=== PATIENT | female | born 1925 | race Caucasian/White ===

== ENCOUNTER 2016-09-10 12:01 | Observation (INO) | payer MEDICARE ==
[~2016-09-10] VITALS: Ht 152.4 cm; Wt 47.3 kg
[2016-09-10 12:04] VITALS: BP 143/75; PULSE 51; RESP 16; O2SAT 97
--- NOTE | 2016-09-10 12:25 | ED.REPORT ---
HPI-Back Pain 40 and Over Date of Service Sep 10, 2016 ED Provider: The patient is an 89 year old female with history of hypertension, who was brought to the emergency department complaining of back pain. The patient tripped and fell to the ground at home prior to arrival. She fell to the ground and was all tangled in the furniture. She denies hitting her head or losing consciousness. She noticed shortness of breath after walking around her house prior to the fall. She was sick with flu-like symptoms a few weeks ago. She has noticed shortness of breath with exertion and she has felt weak, shaky, and fatigued. These symptoms have improved since onset. She has been eating and drinking normally over the last few days. She denies extremity pain, chest pain , abdominal pain, cough, runny nose, vomiting or diarrhea. Nursing Notes Stated Complaint: GLF W/BACK PAIN Chief Complaint: Back Pain or Injury Nursing Notes Reviewed: Yes Allergies: Coded Allergies: citalopram (Verified Allergy, Intermediate, extreme drowsiness, 09/10/16) amoxicillin (Verified Allergy, Unknown, RASH, VOMITING, 09/10/16) levofloxacin (Verified Adverse Reaction, Unknown, LEG CRAMPS, 09/10/16) Scheduled Amlodipine (Amlodipine) 5 Mg Tablet 5 MG PO DAILY Aspirin (Aspirin) 81 Mg Tablet 81 MG PO DAILY Doxycycline Hyclate (Doxycycline Hyclate) 100 Mg Capsule 100 MG PO bid x 10 days Flaxseed Oil ([place]-3 Flaxseed Oil) 1,000 Mg Capsule 1,000 MG PO DAILY Lisinopril (Lisinopril) 20 Mg Tablet 20 MG PO BID Metoprolol Tartrate (Metoprolol Tartrate) 50 Mg Tablet 50 MG PO DAILY Multivits-Min/FA/Lycopene/Lut (Centrum Silver Tablet) 1 Each Tablet 1 EACH PO DAILY [place]-3/Dha/Epa/Fish Oil (Fish Oil 1,000 mg Softgel) 1 Each Capsule 1 EACH PO DAILY Simvastatin (Simvastatin) 10 Mg Tablet 10 MG PO HS Vit C/Vit E/Lutein/Min/[place]-3 (Ocuvite Softgel) 1 Each Capsule 1 EACH PO DAILY Scheduled PRN Acetaminophen/Diphenhydramine (Tylenol Pm Ex-Strength Caplet) 500 Mg-25 Mg Tablet 1 EACH PO HS PRN PRN For Sleep Albuterol HFA (Proair HFA) 8.5 Gm Hfa.aer.ad 2 PUFFS INHALATION Q4H PRN PRN For Shortness of Breath General Time Seen by MD: 12:24 Chief Complaint Back pain Hx Obtained From: Patient, EMS Arrived By: Ambulance Sudden in Onset?: Yes Onset Occurred: 1 - 4 hours ago Symptom Duration: Since onset Caused by: Fall Location: : Perispinal lumbar Quality: Painful Radiation: : Does not radiate Severity: Current: Moderate Severity: Maximum: Moderate Recent Healthcare: No recent doctor visit, No recent hospitalization Similar Sx Previous: No Past Medical History Family History Noncontributory Social History Other Social History: Local resident Ambulatory Status Independent Review of Systems Constitutional: Reports: Fatigue, Weakness - generalized, Denies: Chills, Fever Respiratory: Reports: Dyspnea on exertion, Denies: Non-productive cough Cardiovascular: Denies: Chest pain GI: Denies: Abdominal pain, Diarrhea, Nausea, Vomiting Musculoskeletal: Reports: Back pain, Denies: Extremity pain, Neck pain Neurologic: Denies: Change LOC, Headache Complete sys rev & neg: except as marked. Ears / Nose / Throat: Denies: Nasal congestion Physical Exam Initial Vital Signs Vital Signs (First) Date Time Temp Pulse Resp B/P Pulse Ox O2 Delivery O2 Flow Rate FiO2 09/10/16 12:04 37.1 51 16 143/75 97 Room Air Initial VS: Reviewed, Vital signs normal Head / Eyes: Atraumatic, Normocephalic, PERRL ENT: Mucous membranes moist, Conjunctiva normal, No scleral icterus Neck: Supple, Non-tender, Full range of motion Lymphatic: No lymphadenopathy Extremities: Vascular intact, Neuro intact, No swelling, No tenderness Skin: Warm, Dry, No cyanosis Psychiatric: Mood/affect normal, Behavior normal, Normal thought content General/Constitutional: Awake, Alert Respiratory / Chest: Atraumatic, Breath sounds NL, Breath sounds = bilat, No respiratory distress, No rales, No rhonchi, No wheezing Cardiovascular: Heart rate NL, Regular rhythm, Heart sounds NL, No murmurs, No rubs, Peripheral circulation NL Abdomen: Soft, No rebound, No distention, No palpable mass, No pulsatile mass Generalized tenderness with intermittent voluntary guarding BACK: Midline lumbar tenderness. Neurologic: Oriented X3, Speech NL Lower Extremity / Pelvis / MS: No deformity, Neurologic intact, Vascular intact , Pelvis stable, Pelvis non-tender Upper Extremity / MS: Neurologic intact, Vascular intact Skin tear to her left lateral proximal forearm Interpretation & Diagnostics Lab Results Interpretation Result Diagram: 09/10/16 1310 09/10/16 1310 Test 09/10/16 13:10 White Blood Count 9.3th/mm3 (3.8-10.1) Red Blood Count 4.78mil/mm3 (3.90-5.20) Hemoglobin 14.2g/dL (12.0-15.6) Hematocrit 42.5% (35.0-46.0) Mean Corpuscular Volume 88.9fL (81-100) Mean Corpuscular Hemoglobin 29.7pg (27.0-35.0) Mean Corpuscular Hemoglobin Concent 33.4% (32.0-37.0) Red Cell Distribution Width 13.4% (12.3-15.4) Platelet Count 198bil/L (150-400) Neutrophils (%) (Auto) 80.3% (40-74) Lymphocytes (%) (Auto) 11.6% (14-46) Monocytes (%) (Auto) 6.0% (4-12) Eosinophils (%) (Auto) 1.1% (0-5) Basophils (%) (Auto) 0.1% (0-3) Sodium Level 138mEq/L (134-144) Potassium Level 4.1mEq/L (3.5-5.2) Chloride Level 99mEq/L (97-108) Carbon Dioxide Level 28mmol/L (18-29) Blood Urea Nitrogen 20mg/dL (8-27) Creatinine 0.57mg/dL (0.57-1.00) Estimat Glomerular Filtration Rate 143mL/min (>59) Glucose Level 120mg/dL (60-99) Calcium Level 8.9mg/dL (8.5-10.1) Magnesium Level 1.9mg/dL (1.6-2.6) Total Bilirubin 0.7mg/dL (0.0-1.2) Aspartate Amino Transf (AST/SGOT) 29U/L (0-50) Alanine Aminotransferase (ALT/SGPT) 42U/L (0-32) Alkaline Phosphatase 66U/L (25-165) Total Protein 6.2g/dL (6.4-8.4) Albumin 3.6g/dL (3.4-5.0) Lipase 128U/L (13-60) Hold Mckeon Top Tube Received (Received) X-Ray Chest Interpretation Chest Xray Interpretation: IMPRESSION: No acute cardiopulmonary abnormality Dictated by: Roldan Montes M.D. on 09/10/2016 at 13:21 Interpretation / Wet Read by: Interpret - Radiologist X-Ray Interpretation Xray Interpretation: IMPRESSION: 1. Compression fracture deformity of L1, new since the exam of 01/18/2016. Correlate clinically. 2. 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 Dictated by: Roldan Montes M.D. on 09/10/2016 at 13:27 Study Performed: lumbar spine Interpretation / Wet Read by: Interpret - Radiologist Re-Eval/Medical Decision Med Decision/Clinical Course Patient has a mechanical fall and denies head injury, there is no sign of head injury. She is found to have an L1 compression fracture. Patient's pain and will need to be admitted for pain control and possible temporary placement. I discussed patient with Dr. Clifton, recommended symptomatic treatment only and does not need to see the patient uness requested by the hospitalist. Source of Hx: Old records, EMS Re-Evaluation/Progress : Time of Eval: 13:51 Re-Evaluation/Progress Note: Rechecked the patient. Discussed x-ray results, diagnosis, and plan for admission. All questions were addressed. Consultation #1: Referral / Consult Name: William Walters MD Consulted With: Hospitalist Requested Call at: 13:39 Call Returned at: 14:20 Gang Pusher: Will see patient, Agrees with eval, Agrees with plan, Accepts admit Consultation #2: Referral / Consult Name: Tyree Clifton MD Call Returned at: 14:22 Note: Spoke with the manpower development specialist. He looked at the films. He recommends treating her symptomatically. Hospitalist staff does not need to contact him unless they have questions. Counseled Regarding: Diagnosis, Lab results, Need for transfer Discharge & Departure Impression: Primary Impression: Compression fracture of lumbar vertebra Encounter type: initial encounter Fracture type: closed Qualified Code: S32.000A - Wedge compression fracture of unspecified lumbar vertebra, initial encounter for closed fracture Additional Impression: Fall from ground level Disposition: ADMITTED TO HOSPITAL Discharge Condition All VS Reviewed: Yes Condition: Stable Referrals: Blessing Laguerre (PCP) Francesco Attestation Portions of this note were transcribed by Sylwia Rainey. I, Dr. Lord personally performed the history, physical exam and medical decision-making; I reviewed and confirmed the accuracy of the information in the transcribed note. Signed by: Francesco Salazar, 09/10/2016 at 1600. copies to: Blessing Laguerre Jena M MD Sep 10, 2016 12:25 Sylwia Rainey Sep 10, 2016 12:34
[2016-09-10] MEDS ORDERED: Ondansetron 2 mg/mL 2 mL Inj IVPUSH ONE (12:35)
[2016-09-10 13:25] LABS: Mean Corpuscular Hemoglobin 29.7 pg (27.0-35.0); Mean Corpuscular Volume 88.9 fL (81-100)
--- NOTE | 2016-09-10 13:26 | DRSVH ---
PROCEDURE: X-RAY CHEST ONE VIEW, PORTABLE ([id number]) INDICATIONS: weakness TECHNIQUE: One view of the chest was acquired. COMPARISON: 10/18/2014; CT chest 01/18/2016. FINDINGS: Surgical changes and devices: None. Lungs and pleura: No pleural effusions or pneumothorax. Lungs are clear. Mediastinum: Mediastinal contours appear normal. There is slight fullness in the right hilum but doris ears unchanged from prominent vasculature on CT. Heart size is normal. Aortic calcifications. Bones and chest wall: No suspicious bony lesions. Overlying soft tissues appear unremarkable. IMPRESSION: No acute cardiopulmonary abnormality Dictated by: Roldan Montes M.D. on 09/10/2016 at 13:21 Approved by: Roldan Montes M.D. on 09/10/2016 at 13:25
[2016-09-10 13:27] LABS: BASOPHILS % (AUTO) 0.1 % (0-3); EOSINOPHILS % (AUTO) 1.1 % (0-5); NEUTROPHILS % (AUTO) 80.3 % (40-74); Platelet Count 198 bil/L (150-400)
--- NOTE | 2016-09-10 13:34 | DRSVH ---
PROCEDURE: X-RAY LUMBAR SPINE, 2 OR 3 VIEW INDICATIONS: weakness TECHNIQUE: 3 views of the lumbar spine were acquired. COMPARISON: CT thorax 01/18/2016. FINDINGS: Bones: 5 [id number] vertebrae are present. There is normal bony alignment. There is a mild comp ression fracture deformity of L1, not present on the prior CT exam. There is approximately 20% volume loss. No apparent retropulsion. No suspicious bony lesions. There is apparent disc narrowing at L4-5 and L5-S1 associated with facet arthropathy. Soft tissues: Overlying bowel gas pattern is normal. Vascular calcifications. IMPRESSION: 1. Compression fracture deformity of L1, new since the exam of 01/18/2016. Correlate clinically. 2. 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 Dictated by: Roldan Montes M.D. on 09/10/2016 at 13:27 Approved by: Roldan Montes M.D. on 09/10/2016 at 13:32
[2016-09-10 13:39] LABS: Magnesium 1.9 mg/dL (1.6-2.6)
[2016-09-10 15:33] VITALS: BP 114/75; PULSE 56; RESP 19; O2SAT 95
[2016-09-10] MEDS ORDERED: ALPRAZolam 0.5 mg Tablet PO PRN (16:30)
[2016-09-10] MEDS ORDERED: Lactated Ringer's 1,000 ML IV SCH (16:49)
[2016-09-10] MEDS ORDERED: Alum-Mag Hydrox-Simeth 30 mL Suspension PO PRN ×2 (16:50→20:45)
[2016-09-10] MEDS ORDERED: Ondansetron 2 mg/mL 2 mL Inj IVPUSH PRN ×2 (16:50→20:45)
[2016-09-10] MEDS ORDERED: HYDROmorphone 0.5 mg/0.5 mL iSecure Syringe IVPUSH PRN (16:50)
--- NOTE | 2016-09-10 16:50 | PCM.HPMED ---
Subjective Date of Service Sep 10, 2016 Primary Provider: Admitting Physician: William Walters MD Primary Care Physician: Blessing Laguerre Attending Physician: William Walters MD Chief Complaint: Status post fall, T1 fracture History of Present Illness: The patient is an 89 year old female with history of hypertension, who was brought to the emergency after she sustained a ground-level fall at home and has been complaining of back pain . The patient she has been feeling weak lately and may have had flulike symptom for over a week or so . She usually ambulates with a walker . She stated she was treated and fall and hit her back. She denied any chest pain, palpitation, lightheadedness, loss of consciousness prior to the fall. She noticed shortness of breath after walking around her house prior to the fall. She has been eating and drinking normally over the last few days. She denies extremity pain, chest pain, abdominal pain, cough, runny nose, vomiting or diarrhea. Workup in the emergency room include lumbar spine x-ray which showed T1 compression fracture. At the time of the admission patient was not seen by orthopedist but per my conversation with ER physician orthopedist was consulted and awaiting evaluation. Patient is being but observation for pain control. She is unable to walk and move at this time. She she states she does not usually do well with narcotics and would like to avoid them for pain control. Review of Systems: A comprehensive reviewed system 10 points is negative except for what is described in history of present illness Allergies Coded Allergies: amoxicillin (Verified Allergy, Unknown, RASH, VOMITING, 09/10/16) levofloxacin (Verified Adverse Reaction, Unknown, LEG CRAMPS, 09/10/16) Home Medications Unknown PMH OA, hypertension. Surgical History None Family History reviewed and is not contributory to the present illness Social History Hx Alcohol Use: No Hx Substance Use: No Hx Tobacco Use: No Living Arrangement: Alone Exam Vital Signs Vital Sign - Last Date Time Temp Pulse Resp B/P Pulse Ox O2 Delivery O2 Flow Rate FiO2 09/10/16 15:33 56 19 114/75 95 Room Air 09/10/16 12:04 37.1 Exam General : Alert female, anxious, but comfortably. Well-nourished HEENT: JILLIAN. , sclerae anicteric Neck: No cervical lymphadenopathy, no spine tenderness, trachea midline Chest: No chest tenderness, normal respiratory effort Lung: Clear bilaterally, no crackles, no wheezing. Heart:S1, S2, RRR: No murmur, no gallop Abdomen: : Audible bowel sounds or quadrant, nontender, nondistended Extremity: No edema: No cyanosis, No calf tenderness. Neuro : Grossly nonfocal Skin; no rash, no ulcers Lab and Diagnostics Result Diagram: 09/10/16 1310 X-Rays, CTs and MRIs Lumbar spine CT scan reviewed : 1. Compression fracture deformity of L1, new since the exam of 01/18/2016. Correlate clinically. 2. 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 Chest x-ray reviewed: No acute cardiopulmonary disease Assessment & Plan 1. S/p fall 2. T1 Compression Fracture Admit to observation Pain control : Avoid narcotics as per the patient request . Start Toradol 125 mg IV Q6H PRN for pain . Physical therapy evaluation. Orthopedist consulted by ER physician. Home medications are not available at the time of admission. Enoxaparin for DVT prophylaxis. Hospital stay of 24- 48 hours anticipated pending orthopedist recommendation. Pain Evaluation: Adequate Pain Control VTE Prophylaxis: Sub-Q Enoxaparin Resuscitation Status: CPR: Attempt Resuscitation Time spent 55 minutes William Walters MD Sep 10, 2016 16:50
[2016-09-10] MEDS ORDERED: SIMV10TA4 PO (17:00)
[2016-09-10] MEDS ORDERED: ASPI-973 PO (17:00)
[2016-09-10] MEDS ORDERED: LISI-567 PO (17:00)
[2016-09-10] MEDS ORDERED: MULT-1073 PO (17:00)
[2016-09-10] MEDS ORDERED: METO50TA3 PO (17:00)
[2016-09-10] MEDS ORDERED: ACET-2605 PO (17:00)
[2016-09-10] MEDS ORDERED: OMEG-38 PO (17:00)
[2016-09-10] MEDS ORDERED: DOXY100C2 PO (17:00)
[2016-09-10] MEDS ORDERED: FLAX100038 PO (17:00)
[2016-09-10] MEDS ORDERED: VIT1CAPS8 PO (17:00)
[2016-09-10] MEDS ORDERED: AMLO5TAB2 PO (17:00)
[2016-09-10] MEDS ORDERED: ALBU8.5H2 INHALATION (17:00)
[2016-09-10 17:14] VITALS: BP 101/62; PULSE 56; RESP 14; O2SAT 91
[2016-09-10 17:57] VITALS: BP 118/63; PULSE 60; RESP 15; O2SAT 93
--- NOTE | 2016-09-10 18:24 | NUR ---
Admit from ER patient came to [facility] approx 1730 via bed. Report received from ER nurse Lilly. Alert and oriented X3. Able to make needs known. hard of hearing. PRN pain medication received at ER prior to MOC. per pain assessment back pain 08/30. IV saline locked left forearm. patient is bed fast due to lumbar fracture. pending PT evaluation. stable vital signs. O2 93% RA. afebrile. denies cough or trouble breathing. general diet. patient has not gone to bathroom per ER report. bladder scan 174 ml. will monitor urine out put. patient took sips of water. Requires monitoring of urinary out put and intake of fluids. call light with in reach for safety. stable mood.
[2016-09-10 19:58] VITALS: BP 101/57; PULSE 73; RESP 20; O2SAT 96
[2016-09-10] MEDS: Ketorolac 15 mg/mL Inj IVPUSH PRN (20:25)
[2016-09-10] MEDS: 0.9% Sodium Chloride 1,000 ML IV SCH (20:25)
[2016-09-10] MEDS ORDERED: Polyethylene Glycol (PEG) 17 Gm Powder PO PRN (20:45)
--- NOTE | 2016-09-10 20:55 | NUR ---
Case Management: Explained MARK to pt's nephew Kash Montez at 2010, pt awake but in too much pain to listen carefully. Kash signed, original placed in chart, copy given to patient. "How Medicare Covers Self-administered Drugs Given in Hospital Outpatient Settings" also given to patient. Evi Resendez, RN
[2016-09-10 23:55] LABS: APPEARANCE,URINE CLEAR (CLEAR,HAZY); COLOR,URINE DARK YELLOW (YELLOW); OCCULT BLOOD,URINE NEGATIVE (NEGATIVE); PH,URINE 6.5 (5.0-8.0); UROBILINOGEN,URINE NORMAL (NORMAL)
--- NOTE | 2016-09-11 03:52 | NUR ---
Shift Note Pt admitted with L1 fx, in severe pain. Pt given 15mg toradol and 2mg morphine IVP. Pt has been resting the remainder of the night with no complaints. Pt voided on bedpan and UA sent to lab with negative result. bed down and locked. pt is legally blind so is having a hard time with call light so q1 checks have been preformed throughout shift, pt has had no complaints and stated pain had gone from an 8/10 to a 1/10 with the administration of pain medication.
[2016-09-11 04:31] VITALS: BP 106/62; PULSE 73; RESP 16; O2SAT 92
[2016-09-11] MEDS: Ketorolac 15 mg/mL Inj IVPUSH PRN ×2 (05:21→12:41)
[2016-09-11 06:48] LABS: Mean Corpuscular Hemoglobin 29.9 pg (27.0-35.0); Mean Corpuscular Volume 89.8 fL (81-100)
[2016-09-11] MEDS ORDERED: Albuterol 2.5 mg/3 mL Inhalation Solution NEB PRN (07:00)
[2016-09-11 08:56] VITALS: BP 135/68; PULSE 61; RESP 14; O2SAT 92
[2016-09-11 13:15] VITALS: BP 129/62; PULSE 51; RESP 18; O2SAT 93
--- NOTE | 2016-09-11 14:14 | NUR ---
Social Work Initial Assessment and Readiness for Discharge: SW met with patient and suzie Burkett, at bedside to discuss discharge plan. Patient asleep at bedside and didn't arouse to discuss discharge plans. Patient family verified patient information. Patient is a 89 year old female admitted on 09/10/16 for L1 fracture. Patient payer as Medicare. A[employer] secondary. Patient has no half-way disability insurance. Patient PCP as MD Laguerre. Patient is a resident of [facility]. Patient has resided at facility for 5 years. Patient uses a cane at home and is independent with needs. Patient family coordinated arrangements with [facility] in past and patient refused services after 1 time home assessment. SW discussed therapy recommendations for SNF placement. Options discussed with family. Family aware of observation status. Family states having available funds to pay privately for rehab. Choice list provided. [facility] as [facility] or [facility]. SW requested that UR specialist send referral to mentioned facilities for possible acceptance under private pay expense. SW will continue to follow. PLAN: SNF via private pay expense, pending SNF acceptance and clinical course. Referral sent to [facility] and [facility] Addendum: 09/11/16 at 1427 by LANRE GONSALEZ Amended: Links added. Addendum: 09/11/16 at 1549 by LANRE GONSALEZ Patient accepted to [facility] of . Patient in agreement. Bed available tomorrow. SW will continue to follow [facility]
--- NOTE | 2016-09-11 14:32 | NUR ---
Gave access and faxed facesheet to [facility] and [facility] Collin Carpenter meredith STATISTICIAN MATHEMATICAL Addendum: 09/11/16 at 1459 by JOURDAN KOENIG CM [facility] can accept patient when ready with to follow
--- NOTE | 2016-09-11 14:46 | PCM.PNMED ---
Subjective Date of Service Sep 11, 2016 Subjective denies any new issues/complaints Exam Vital Signs Vital Sign - Last Date Time Temp Pulse Resp B/P Pulse Ox O2 Delivery O2 Flow Rate FiO2 09/11/16 13:15 36.6 51 18 129/62 93 Nasal Cannula 2.00 Intake and Output 09/10/16 09/10/16 09/11/16 Cumulative From/Thru 15:00 23:00 07:00 09/10/16 12:04 - 09/11/16 04:31 Intake Total 100 ml 100 ml Output Total 200 ml 200 ml Balance -100 ml -100 ml Intake Oral 100 ml 100 ml Output Urine Total 200 ml 200 ml General: Alert, Cooperative, No Acute Distress Head: Normal Eyes: Scleral Anicteric Nose: Mucous Membr Moist/[place] Mouth: Mucous Membr Moist/[place] Neck: Supple Chest & Lungs: Chest Wall Normal, Clear to auscultation & percussion Cardiovascular: Regular Rate/Rhythm Abdomen: Non-tender, Non-distended, Normoactive bowel tones, Soft Extremities: No cyanosis/clubbing/edma bilat Neurological: Grossly Neurologically Intact, Normal Speech IVs and Medications Medications Reviewed: Medications were reviewed in detail Lab and Diagnostics Result Diagram: 09/11/16 0603 09/11/16 0603 X-Rays, CTs and MRIs Lumbar spine CT scan reviewed : 1. Compression fracture deformity of L1, new since the exam of 01/18/2016. Correlate clinically. 2. 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 Chest x-ray reviewed: No acute cardiopulmonary disease Assessment & Plan 89 year old female with history of hypertension, who was brought to the emergency after she sustained a ground-level fall at home and has been complaining of back pain . The patient she has been feeling weak lately and may have had flulike symptom for over a week or so . She usually ambulates with a walker . She stated she fell and hit her back. # Acute T1 Compression Fracture after ground level fall - continue with supportive care and pain control as needed - c/w PT - f/u w/ ortho consult (as noted in H&P) # History of hypertension, under control - c/w home meds Dispo: likely SNF in 1-2 days pending adequate pain control VTE Prophylaxis: Sub-Q Enoxaparin VTE Mechanical Devices: Intermittant Pneumatic CD Resuscitation Status: CPR: Attempt Resuscitation Taleghani,Rashawn Sep 11, 2016 14:45
--- NOTE | 2016-09-11 15:09 | NUR ---
Evaluation completed. Please go to "Notes" then click on "Assessments and Notes" (bottom left corner of screen). Then select appropriate discipline tab on top of screen.
[2016-09-11] MEDS ORDERED: Influenza (Adult) Vaccine 0.5 mL Syringe IM ONE (16:40)
[2016-09-11] MEDS: 0.9% Sodium Chloride 1,000 ML IV SCH (16:45)
[2016-09-11 18:00] VITALS: BP 123/69; PULSE 64; RESP 18; O2SAT 92
--- NOTE | 2016-09-11 18:49 | NUR ---
Activity Pt. tolerates standing and getting up to chair using log roll technique and with premedication. Requires two person assist and gait belt. Up to BSC and to chair for meals.
[2016-09-11 21:21] VITALS: BP 108/60; PULSE 59; RESP 18; O2SAT 93
--- NOTE | 2016-09-11 21:22 | NUR ---
BP Pt BP 108/60 hr 59 no s/sx of hypo/hypertension noted at this time. Held Lisinopril 20mg. Denies chest pain and shortness of breath. Care ongoing.
[2016-09-12] MEDS: Ketorolac 15 mg/mL Inj IVPUSH PRN ×2 (01:21→09:03)
[2016-09-12] MEDS: 0.9% Sodium Chloride 1,000 ML IV SCH ×2 (01:27→06:27)
[2016-09-12 02:55] VITALS: BP 136/71; PULSE 58; RESP 16; O2SAT 94
[2016-09-12 05:22] VITALS: BP 146/70; PULSE 63; RESP 16; O2SAT 94
[2016-09-12 09:00] VITALS: BP 137/74; PULSE 67
[2016-09-12] MEDS ORDERED: Acetaminophen PO (11:25)
[2016-09-12] MEDS ORDERED: POLY17PO6 PO (11:25)
[2016-09-12] MEDS ORDERED: SENN-133 PO (11:25)
[2016-09-12] MEDS ORDERED: ACET-2605 PO (11:25)
[2016-09-12] MEDS ORDERED: ALPR0.5T8 PO (11:25)
[2016-09-12] MEDS ORDERED: OXYC5TAB72 PO (11:25)
--- NOTE | 2016-09-12 11:27 | PCM.DIMED ---
Discharge Instructions Date of Service Sep 12, 2016 Dates of Hospitalization Sep 10, 2016 at 16:00 Discharge Diagnosis Discharge Diagnosis # Acute T1 Compression Fracture after ground level fall. present on admission # Acute lumbago due to compression fracture noted above. present on admission. ongoing # History of hypertension, under control Diet Low fat, Low Sodium, Heart Healthy Activity Other (as tolerated and per physical therapy) Patient Instructions Follow-up plan 1. Followup with primary care provider in 7-10 days Follow-up Provider: Blessing Laguerre PAC Follow-up with PCP in: 1 week Rashawn Simpson Sep 12, 2016 11:26
[2016-09-12 14:01] VITALS: BP 130/69; PULSE 53; RESP 18; O2SAT 97
--- NOTE | 2016-09-12 14:31 | NUR ---
Discharge Patient left via wheelchair to [facility] transported by Arianna Trevino at 1420. Pt declined toradol prior to transport. IV d/c'd intact. All belongings left with patient. Report called to Alice at [facility]. Call back number given for any questions.
--- NOTE | 2016-09-12 14:50 | PCM.DC.MED ---
Discharge Summary Date of Service Sep 12, 2016 Dates of Hospitalization Date of Hospital Admission Sep 10, 2016 at 16:00 Date of Discharge: Sep 12, 2016 Providers: Admitting Physician: William Walters MD Primary Care Physician: Blessing Laguerre Attending Physician: William Walters MD Diagnosis at Time of Discharge Diagnosis at Time of Discharge # Acute T1 Compression Fracture after ground level fall. present on admission # Acute lumbago due to compression fracture noted above. present on admission. ongoing # History of hypertension, under control Procedures XRay, CTs & MRIs Date of Service: 09/10/16 1232 PROCEDURE: X-RAY LUMBAR SPINE, 2 OR 3 VIEW IMPRESSION: 1. Compression fracture deformity of L1, new since the exam of 01/18/2016. Correlate clinically. 2. 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 Dictated by: Roldan Montes M.D. on 09/10/2016 at 13:27 Approved by: Roldan Montes M.D. on 09/10/2016 at 13:32 Brief History 89 year old female with history of hypertension, who was brought to the emergency after she sustained a ground-level fall at home and has been complaining of back pain . The patient she has been feeling weak lately and may have had flulike symptom for over a week or so . She usually ambulates with a walker . She stated she fell and hit her back. Hospital Course # Acute T1 Compression Fracture after ground level fall - continue with supportive care and pain control as needed - c/w PT # History of hypertension, under control - c/w home meds by day of d/c lungs CTA bilat. abd soft, nt, nd, +bs Exam Vital Signs (Last) Date Time Temp Pulse Resp B/P Pulse Ox O2 Delivery O2 Flow Rate FiO2 09/12/16 14:01 36.8 53 18 130/69 97 Nasal Cannula 2.00 Test 09/10/16 13:10 09/10/16 23:39 09/11/16 06:03 Neutrophils (%) (Auto) 80.3% (40-74) Lymphocytes (%) (Auto) 11.6% (14-46) Monocytes (%) (Auto) 6.0% (4-12) Eosinophils (%) (Auto) 1.1% (0-5) Basophils (%) (Auto) 0.1% (0-3) Magnesium Level 1.9mg/dL (1.6-2.6) Total Bilirubin 0.7mg/dL (0.0-1.2) Aspartate Amino Transf (AST/SGOT) 29U/L (0-50) Alanine Aminotransferase (ALT/SGPT) 42U/L (0-32) Alkaline Phosphatase 66U/L (25-165) Total Protein 6.2g/dL (6.4-8.4) Albumin 3.6g/dL (3.4-5.0) Lipase 128U/L (13-60) Hold Mckeon Top Tube Received (Received) Urine Color Dark yellow (YELLOW) Urine Appearance Clear (CLEAR,HAZY) Urine pH 6.5 (5.0-8.0) Urine Specific [place] 1.020 (1.003-1.035) Urine Protein Negativemg/dL (NEG,TRACE) Urine Glucose (UA) Negativemg/dL (NEGATIVE) Urine Ketones Tracemg/dL (NEGATIVE) Urine Occult Blood Negative (NEGATIVE) Urine Nitrite Negative (NEGATIVE) Urine Bilirubin Negative (NEGATIVE) Urine Urobilinogen Normalmg/dL (NORMAL) Urine Leukocyte Esterase Negative (NEGATIVE) Urine RBC 0-2/hpf (0-2) Urine WBC 0-5/hpf (0-5) Urine Epithelial Cells Few/hpf (NONE-MOD) Urine Crystals None seen (NONE SEEN) Urine Bacteria Few/hpf (NONE-FEW) Urine Hyaline Casts None/lpf (NONE) Urine Granular Casts None seen (NONE SEEN) Urine Waxy Casts None seen (NONE SEEN) Urine Red Blood Cell Casts None seen (NONE SEEN) Urine White Blood Cell Casts None seen (NONE SEEN) Urine Mucus Present (None Seen) Urine Trichomonas None seen (NONE SEEN) Urine Yeast None (NONE SEEN) Urinalysis Comment None Urine Culture Reflexed Not indicated White Blood Count 7.0th/mm3 (3.8-10.1) Red Blood Count 4.21mil/mm3 (3.90-5.20) Hemoglobin 12.6g/dL (12.0-15.6) Hematocrit 37.8% (35.0-46.0) Mean Corpuscular Volume 89.8fL (81-100) Mean Corpuscular Hemoglobin 29.9pg (27.0-35.0) Mean Corpuscular Hemoglobin Concent 33.3% (32.0-37.0) Red Cell Distribution Width 13.3% (12.3-15.4) Platelet Count 164bil/L (150-400) Sodium Level 140mEq/L (134-144) Potassium Level 4.0mEq/L (3.5-5.2) Chloride Level 103mEq/L (97-108) Carbon Dioxide Level 24mmol/L (18-29) Blood Urea Nitrogen 18mg/dL (8-27) Creatinine 0.71mg/dL (0.57-1.00) Estimat Glomerular Filtration Rate 111mL/min (>59) Glucose Level 93mg/dL (60-99) Calcium Level 8.0mg/dL (8.5-10.1) Discharge Medications Discharge Medications Amlodipine (Amlodipine) 5 Mg Tablet 5 MG PO DAILY (Reported) Aspirin (Aspirin) 81 Mg Tablet 81 MG PO DAILY (Reported) Flaxseed Oil (Weir-3 Flaxseed Oil) 1,000 Mg Capsule 1,000 MG PO DAILY (Reported ) Lisinopril (Lisinopril) 20 Mg Tablet 20 MG PO BID (Reported) Metoprolol Tartrate (Metoprolol Tartrate) 50 Mg Tablet 50 MG PO DAILY (Reported ) Multivits-Min/FA/Lycopene/Lut (Centrum Silver Tablet) 1 Each Tablet 1 EACH PO DAILY (Reported) Weir-3/Dha/Epa/Fish Oil (Fish Oil 1,000 mg Softgel) 1 Each Capsule 1 EACH PO DAILY (Reported) Simvastatin (Simvastatin) 10 Mg Tablet 10 MG PO HS (Reported) Vit C/Vit E/Lutein/Min/Weir-3 (Ocuvite Softgel) 1 Each Capsule 1 EACH PO DAILY (Reported) As needed ([Acetaminophen]) 325 MG TABLET 975 MG PO Q6H PRN PRN For Pain Prescribed by: CELSO BATRES MD Acetaminophen/Diphenhydramine (Tylenol Pm Ex-Strength Caplet) 500 Mg-25 Mg Tablet 1 EACH PO HS PRN PRN For Sleep Prescribed by: CELSO BATRES MD Albuterol HFA (Proair HFA) 8.5 Gm Hfa.aer.ad 2 PUFFS INHALATION Q4H PRN PRN For Shortness of Breath (Reported) Alprazolam (Alprazolam) 0.5 Mg Tablet 0.5 MG PO TID PRN PRN For Spasm Prescribed by: CELSO BATRES MD Polyethylene Glycol 3350 (Miralax) 17 Gm Powd.pack 17 GM PO DAILY PRN PRN For Constipation Prescribed by: CELSO BATRES MD Sennosides (Senna) 8.6 Mg Tablet 17.2 MG PO BID PRN PRN For Constipation Prescribed by: CELSO BATRES MD oxyCODONE (oxyCODONE) 5 Mg Tablet 5 MG PO QID PRN PRN For Pain Prescribed by: CELSO BATRES MD Followup Plan Disposition: SNF Follow-up plan 1. Followup with primary care provider in 7-10 days Discharge Diet: Low fat, Low Sodium, Heart Healthy Discharge Activity: Other Follow-up Provider: Blessing Laguerre Follow-up with PCP in: 1 week Time spent 30 min copies to: Blessing Laguerre Masoud Sep 12, 2016 14:50
--- NOTE | 2016-09-12 17:22 | NUR ---
Social Work Discharge: Patient accepted to [facility] [place]. UR specialist coordinated transport to facility. Patient and family aware and in agreement. Patient to transfer to rehab under private pay expense. No other needs identified at this time. PLAN: Transfer to [facility] [place] via private pay expense Nahid RAMOS
== END 2016-09-12 14:20 ==
LOC: SED 12:01 → MOC 16:00
PROVIDERS: ADMIT Internal Medicine; ATTEND Internal Medicine
DX: S22.019A Unspecified fracture of first thoracic vertebra, initial encounter for closed fracture (principal); M54.5 Low back pain; I10 Essential (primary) hypertension; M19.90 Unspecified osteoarthritis, unspecified site; R06.02 Shortness of breath; W18.39XA Other fall on same level, initial encounter; Y93.01 Activity, walking, marching and hiking; Y92.019 Unspecified place in single-family (private) house as the place of occurrence of the external cause; Y99.8 Other external cause status; Z79.82 Long term (current) use of aspirin
CPT/HCPCS: 36415; 71010; 72100; 80048; 80053; 81000; 83690; 83735; 85025; 85027; 96374; 96375; 96376; 97163; 97166; 99285; G0378; G8978; G8979; G8987; G8988; G8989; J1885; J2270; J2405; J3360; J7030